=== PATIENT | female | born 1935 | race Caucasian/White ===

== ENCOUNTER 2017-07-30 18:39 | Emergency (ER) | payer MEDICARE, OTHER ==
[2017-07-30 20:29] VITALS: BP 155/61
--- NOTE | 2017-08-01 09:00 | ER ---
DATE SEEN: 07/30/2017 CHIEF COMPLAINT: Fever. HISTORY OF PRESENT ILLNESS: This is an 81-year-old female with fevers for 2 days along with cough, weakness, and chills. PAST MEDICAL HISTORY: No active medical problems except hypertension. ALLERGIES: Sulfa. PHYSICAL EXAMINATION: VITAL SIGNS: Blood pressure is normal 155/61, heart rate 85, and temperature 101.6. ENT: Negative. NECK: No thyromegaly. CHEST: Clear. CARDIOVASCULAR: Normal. LABORATORY DATA: Influenza A is positive. Chest x-ray was negative. IMPRESSION: Influenza A syndrome. PLAN: A 75 mg of Tamiflu twice a day for 5 days. Tylenol and ibuprofen. Return p.r.n. /[id number] FRANCISCO/MARCUS
--- NOTE | 2017-08-01 11:46 | CR ---
INDICATION: Cough and fever. CHEST: PA and lateral views of the chest 07/30/2017 - no comparisons. Prominent AP diameter, hyperaeration, and slightly flattened diaphragm leaves on the lateral view, raise question of a mild degree of COPD - correlate clinically. No consolidating pneumonia or effusion could be identified. The heart appeared normal in size and shape. The aorta is tortuous with calcification in the arch to a mild degree. A mild to moderate dextroconcave scoliosis is noted in the lower thoracic spine. Mild degenerative changes are also noted in the lower thoracic spine. Bronchial wall cuffing is noted in the lower lung morrison, especially at the lung bases, and may represent active peribronchial disease and/or fibrosis and should be correlated clinically. IMPRESSION: 1. Bronchial wall cuffing, otherwise no acute process is suspected. No pneumonia was identified. 2. Probable COPD. 3. Degenerative changes and scoliosis. 4. ASD. MTDD
== END 2017-07-30 20:10 | disposition home or self-care (01) ==
LOC: FB.ED 18:39
DX: J10.1 Influenza due to other identified influenza virus with other respiratory manifestations (principal); I10 Essential (primary) hypertension; Z88.2 Allergy status to sulfonamides
CPT/HCPCS: 36415; 71046; 80048; 85025; 87804; 99284

== ENCOUNTER 2024-12-01 12:30 | Emergency (ER) | payer MEDICARE, OTHER ==
[2024-12-01 12:54] LABS: BASOPHILS PERCENT AUTO 0.5 % (0.2-1.5); EOSINOPHILS ABSOLUTE AUTO 0.1 x10-3/uL (0.0-0.8); EOSINOPHILS PERCENT AUTO 0.7 % (0.6-8.1); HEMATOCRIT 38.3 % (34.2-48.2); LYMPHOCYTES ABSOLUTE AUTO 1.1 x10-3/uL (1.0-4.4); LYMPHOCYTES PERCENT AUTO 12.9 % (18.4-52.1); MEAN CORPUSCULAR HEMOGLOBIN 31.7 pg (23.9-33.9); MEAN CORPUSCULAR HGB CONC 33.8 g/dL (31.9-34.8); MEAN CORPUSCULAR VOLUME 93.9 fL (76.7-100.5); MEAN PLATELET VOLUME 8.6 fL (7.1-12.4); MONOCYTES ABSOLUTE AUTO 0.6 x10-3/uL (0.3-1.0); MONOCYTES PERCENT AUTO 7.1 % (4.4-15.7); NEUTROPHILS ABSOLUTE AUTO 6.9 x10-3/uL (1.5-6.3); NEUTROPHILS PERCENT AUTO 78.8 % (30.8-76.2); PLATELET COUNT,PLT 283 x10(3)uL (151-488); RED BLOOD CELL COUNT 4.08 x10(6)uL (3.60-5.20); RED CELL DISTRIBUTION WIDTH 13.3 % (12.3-16.5); WHITE BLOOD CELL COUNT,WBC 8.7 x10-3/uL (3.0-10.3)
[2024-12-01] MEDS: Aspirin 81 MG Tab.Chew PO ONE (12:57)
[2024-12-01] MEDS: Heparin Sodium 5,000 Units/ML Vial IVPUSH ONE (13:02)
[2024-12-01 13:03] LABS: INR 1.16 (1.00-1.24); PTT,PARTIAL THROMBOPLSTIN TIME 23.5 SECONDS (24.4-33.2)
[2024-12-01] MEDS: Heparin Sodium/0.45% NaCl 500 ML IV SCH (13:10)
[2024-12-01] MEDS: Ticagrelor 90 MG Tab PO ONE (13:16)
[2024-12-01 13:29] VITALS: BP 147/97; PULSE 107
== END 2024-12-01 13:45 ==
LOC: FB.ED 12:30
DX: I21.3 ST elevation (STEMI) myocardial infarction of unspecified site (principal); I10 Essential (primary) hypertension; Z79.899 Other long term (current) drug therapy; Z88.2 Allergy status to sulfonamides
CPT/HCPCS: 36415; 71045; 85025; 85610; 85730; 93010; 96365; 99285; 99291-25; A9270-GY; J1644